=== PATIENT | male | born 1945 | race Caucasian/White ===

== ENCOUNTER 2023-09-09 23:53 | Observation (INO) | payer MEDICARE, OTHER, SELFPAY ==
[2023-09-09 19:26] VITALS: BP 130/80
[2023-09-09 19:55] LABS: % Basophils 0.8 % (0-2); % Eosinophils 0.3 % (0-6); % Immature Granulocytes 0.3 % (0-0.5); % Lymphocytes 19.8 % (20.5-51.1); % Monocytes 4.4 % (1.7-9.3); % Neutrophils 74.4 % (42.2-75.2); Absolute Basophils 0.1 10^3/uL (0-0.2); Absolute Lymphocytes 1.2 10^3/uL (1.2-3.4); Absolute Monocytes 0.3 10^3/uL (0.1-0.6); Absolute Neutrophils 4.4 10^3/uL (1.4-6.5); Hematocrit 43.6 % (39.0-52.0); Hemoglobin 14.8 g/dL (13.0-18.0); Mean Corp Hgb Conc. 33.9 g/dL (33.0-37.0); Mean Corpuscular Hgb 32.5 pg (27.0-31.0); Mean Corpuscular Volume 95.6 fL (80.0-94.0); Mean Platelet Volume 10.4 fL (7.4-10.4); Nucleated Red Blood Cells % 0 % (-); Platelet Count 178 10^3/uL (130-400); Red Blood Cell Count 4.56 10^6/uL (4.70-6.10); Red Cell Dist. Width 13.2 % (11.5-14.5)
[2023-09-09 20:20] LABS: ALT (SGPT) 18 U/L (0-50); AST (SGOT) 21 U/L (17-59); Albumin 4.1 g/dl (3.5-5.0); Alkaline Phosphatase 90 U/L (38-126); Blood Urea Nitrogen 28 mg/dl (9-20); Calcium 9.7 mg/dl (8.4-10.2); Carbon Dioxide 27 mmol/L (22-30); Chloride 103 mmol/L (98-107); Glucose 134 mg/dl (70-99); Potassium 5.3 mmol/L (3.5-5.1); Sodium 137 mmol/L (135-145); Total Bilirubin 0.7 mg/dl (0.2-1.3); Total Protein 6.6 g/dl (6.3-8.2); eGFR > 60.00
--- NOTE | 2023-09-09 20:22 | ED.GENMED ---
History of Present Illness
General
Chief Complaint: Abdominal Pain
Source: patient, records and family
Exam Limitations: none
Time Seen by Provider: 09/09/23 20:12
Nursing documentation reviewed up to this point in time: agreed with
Travel History
Have you had any contact with someone who has COVID-19?: No
Do you have any symptoms of coronavirus? Fever > 100 degrees, chills, cough, shortness of breath, sore throat, loss of taste or smell, muscle aches, or headache?: No
History of Present Illness
History of Present Illness:
78-year-old male presents with right groin pain onset today around 11 AM with some swelling no history of hernia does have a history of AAA being followed by vascular patient tells me was not big enough for surgery on the most recent CAT scan, has
had no vomiting, no trouble urinating, he has had bladder surgery for cancer, he had inguinal hernia repair he is getting known AAA sees Dr. Mccord has had peripheral vascular surgery for he takes Plavix but he has not had it for about 3 days
due to an upcoming spinal injection
Past History
Past History
ED Past Medical History: Cancer, Hypercholesterolemia and Other (Bladder cancer, perforated bladder, peripheral vascular disease, BPH,)
ED Past Surgical History: Orthopedic and Other (Leg stents, bladder surgery with perforation May 2022)
Patient has exhibited threatening behavior?: No
PSI?: No
Social History
Tobacco: Former smoker
Alcohol: None
Drug: None
Personal:
Living: with family
Employment: Employed
Review of Systems
Review of Systems
All Other Systems: Not applicable
Constitutional: Denies fever or fatigue
EENT: Reports no symptoms
Respiratory: Reports no symptoms
Cardiac: Reports no symptoms
ABD/GI: Reports abdominal pain (In his right groin)
Phy Exam
Physical Exam
Physical Exam:
Physical Exam
General: no apparent distress, not acutely ill
Neck: No jaundice
Heart: s1/s2 regular rate and rhythm, no murmur. equal radial pulses.
Lungs: no acute respiratory distress. clear bilaterally
Abdomen: 3 cm tender bulge in the right inguinal region
Neuro: alert and oriented. no focal neurological deficits
Skin: no rash
Psychiatric: well kept. interactive and cooperative
Extremities: no edema.
Course
Orders/Labs/Results
Orders:
Orders
09/09/23 19:41
CMP [Comprehensive Metabolic Panel] Urgent
Complete Blood Count/With Diff Urgent
09/09/23 20:16
CT Abd/pelvis Angio W/wo Iv Stat
Comment:
Reason For Exam: AAA rigth groint pain
0.9% Sodium Chloride 1000 ml [Nss] 1,000 ml IV BOLUS
09/09/23 20:17
Morphine Sulfate 4 mg IV NOW STA
09/09/23 20:18
Ondansetron Injectable [Zofran] 4 mg IV NOW STA
09/09/23 20:51
Prothrombin Time Urgent
Urinalysis Urgent
Date Specimen was Collected: 09/09/23
Time Specimen was Collected: 19:30
Urine Microscopic Urgent
Date Specimen was Collected: 09/09/23
Time Specimen was Collected: 19:30
09/09/23 22:21
HYDROmorphone [Dilaudid] 1 mg IV NOW STA
Abnormal Lab Results
09/09/23 09/09/23
19:41 20:51
RBC 4.56 L 10^6/uL
(4.70-6.10)
MCV 95.6 H fL
(80.0-94.0)
MCH 32.5 H pg
(27.0-31.0)
Lymphocytes % 19.8 L %
(20.5-51.1)
Potassium 5.3 H mmol/L
(3.5-5.1)
BUN 28 H mg/dl
(9-20)
Glucose 134 H mg/dl
(70-99)
Urine Occult Blood 1+ A
(Negative)
Ur Leukocyte Esterase Trace A
(Negative)
Urine RBC 7-10 A /HPF
(0-2)
Urine Bacteria Few A
(Negative)
09/09/23 19:41
09/09/23 19:41
Vital Signs
Initial and Last Documented VS:
Initial Vital Signs
Temp Pulse Resp BP Pulse Ox
97.8 F 62 24 130/80 96
09/09/23 19:26 09/09/23 19:26 09/09/23 19:26 09/09/23 19:26 09/09/23 19:26
Last Documented Vital Signs
Temp Pulse Resp BP Pulse Ox
97.8 F 62 24 130/80 96
09/09/23 19:26 09/09/23 19:26 09/09/23 19:26 09/09/23 19:26 09/09/23 21:06
Procedures
Other
Indication for procedure:: Symptomatic hernia
Procedure completed by: aston
Consent form signed: No
Additional Procedure:
Verbal consent timeout, reverse Trendelenburg, IV analgesia
attempt x2 unsuccessful
MDM/Problems Addressed
Differential Diagnosis Includes:
Hernia incarcerated hernia AAA rupture
MDM/Problems Addressed:
Groin pain
Chronic conditions affecting care:
AAA
Chronic conditions affecting care: DM
Acute Exacerbation and/or Progression of Chronic Illness:
AAA
*Radiology
Radiology exam reviewed: other (Prior CTs noted repeat pending)
*Pulse Oximetry
Patient hypoxic: no
*Security Systems Engineer Interpretation
Rate: Security Systems Engineer- N/A
*Critical Care Note
Total Time (30-74mins, 75-104mins- exclusive of procedures): Not Applicable
Update Note
Update Note:
10:[address] noted, as suspected looks like inguinal hernia moderately tender will try to reduce place in the progression down
Ice analgesia
Second attempted reduction unsuccessful, no skin changes, patient appears fairly comfortable, after analgesia, reviewed with general surgery, will be admitted, will hold his Plavix
ED Attending Note
-
Portions of this chart may have been created with voice recognition software.� Occasional wrong word or��sound alike� substitutions may have occurred due to the inherent limitations of voice recognition software.
Discharge Plan
Departure
Patient Disposition: Admit
Date of Disposition: 09/09/23
Time of Disposition: 23:22
Admit to: Med/Surg
Admit to doctor: Juan
Presentation/result/management discussed w/ accepting MD/DO: ALANA
Covid-19: Not Applicable
Discharge Problem:
Inguinal hernia
Prescriptions:
No Action
atorvastatin 40 mg Tablet
40 mg PO DAILY
clopidogrel 75 MG tablet
75 mg PO QPM
tamsulosin 0.4 mg Capsule
0.4 mg PO DAILY Qty: 30 0RF
acetaminophen [Tylenol] 325 mg Tablet
650 mg PO BID
nitrofurantoin macrocrystal 100 mg Capsule
100 mg PO QPM
famotidine 20 mg tablet
20 mg PO BID Qty: 14 0RF
Referrals:
Catracho Rausch MD [Family Provider] -
Interventions
Interventions:
*Risk Screen - Suicide Last Done: 09/09/23 19:26
*General Assessment Last Done: 09/09/23 21:08
*Neglect/Abuse Screening Last Done: 09/09/23 19:26
ED- Fall Risk Assessment Last Done: 09/09/23 21:09
*ED COVID-19 Vaccine History Last Done: 09/09/23 21:08
KF-Ujvmhg-Kucnflqicx Assessment Last Done: 09/09/23 21:10
ED-Male Genitourinary Assessment Last Done: 09/09/23 21:10
[2023-09-09] MEDS: MORPHINE SULFATE 4 MG IV (21:01)
[2023-09-09] MEDS: NSS 1000 IV (21:01)
[2023-09-09] MEDS: ZOFRAN 4 MG IV (21:02)
[2023-09-09 21:07] VITALS: BMI 20.7
[2023-09-09 21:11] LABS: Urine Albumin Negative (Neg - Trace); Urine Bilirubin Negative (Negative); Urine Character Clear (Clear); Urine Color Yellow; Urine Glucose Negative (Negative); Urine Ketone Negative (Negative); Urine Leukocyte Trace (Negative); Urine Nitrite Negative (Negative); Urine Occult Blood 1+ (Negative); Urine Urobilinogen Negative (Neg - 1+)
[2023-09-09 21:20] LABS: Urine Squamous Cell 0-2 /LPF (Few)
[2023-09-09 21:21] LABS: INR 1.08; PT 14.2 Sec (11.4-14.6); Urine Bacteria Few (Negative); Urine White Cell 0-2 /HPF (0-5)
[2023-09-09] MEDS: DILAUDID 1 MG IV (22:37)
--- NOTE | 2023-09-09 23:59 | HPS.HSE ---
Addendum entered and electronically signed by Bora Martinez MD 09/10/23 08:03:
I saw and examined the patient.
The Thin Film Technician's note was reviewed and I agree with the note.
Comment: Seen and evaluated at bedside. Reports improved pain and swelling in the right groin though not completely resolved. He denies any heavy lifting or straining for BMs. He was driving when the pain started. He is a smoker and does have a
chronic cough but is unsure if he was coughing in any significant way prior to onset. He has had an open RIHR in the past but does not recall the date or details but reports it was many years ago. He denies n/v. Last BM yesterday was normal. On
plavix for PAD, last dose 3 days ago (preparation for epidural injections scheduled in near future). There is a tender bulge palpable on exam in the right groin, no skin changes, not reducible. Otherwise abd exam is benign. AFVSS, labs unremarkable.
CT from yesterday reviewed as well as prior scans going back about 18 months. In March there is no fluid in the groin, in Apr there is a fluid collection there, on the scan from this admission the fluid collection appears larger. There is bowel
adjacent to the fluid but it is unclear on my interpretation if there is actually bowel in the hernia. He has no obstructive symptoms. He is still requiring pain medicine to manage the groin pain. We briefly discussed elevated risks of emergency
surgery due to recent plavix use. His labs and vitals are stable and his exam is improved. Plan: Rpt CT A/P with PO contrast only - to help determine if there is true bowel involvement here
Original Note:
Family Physician
-
Family Physician: Catracho Rausch
Chief Complaint
-
right inguinal hernia
History of Present Illness
78-year-old male with extensive vascular surgery hx presents with right groin pain onset today around 11 AM with some swelling. He did attempt to reduce hernia himself with no luck. ER doc Attmepted twice and also had no success. Has a history of
AAA being followed by vascular (Dr Fischer) patient tells me was not big enough for surgery on the most recent CAT scan. He has had no vomiting, no trouble urinating, he has had bladder surgery for cancer, he thinks he has had inguinal hernia repair
with mesh and has has many peripheral vascular surgery for -->he takes Plavix but he has not had it for about 3 days due to an upcoming spinal injection.
CT scan: IMPRESSION:
1. Increased size of a small to moderate inguinal hernia containing a loop of small bowel with mild wall edema or adjacent small fluid.
2. Stable abdominal aortic aneurysm measuring 5.2 cm in diameter.
3. Stable chronic findings, as above.
Medical History
Past Medical History
Past Medical History: Reports COPD (emphysema), CVA (TIA's), Valvular Disease ( peripheral vascular disease, BPH, AAA) and Other ( Hypercholesterolemia and Bladder cancer, perforated bladder, t12 comp fx, right scapular fx, )
Past Surgical History: Reports Orthopedic (back surgery, left ankle surgery, knee surgery, ), Urological (transurethral resection of bladder tumor for this high-grade tumor and during the procedure there was a perforation of the bladder 2021, turp
february 2023,) and Other (LLE arteriogram 2016, 2018, right inguinal hernia repair ? date unknown)
Social History
Tobacco: Former Smoker
Alcohol: None
Drug: None
Personal:
Living: With Family
Employment: Employed
Family History
Family History: Not pertinent
Allergies / Home Medications
Allergies reflects when Allergies were last updated in [employer].
Home Medications with original date entered in [employer]
Allergy/Medication List:
Allergies
Allergy/AdvReac Type Severity Reaction Status Date / Time
No Known Allergies Allergy Verified 07/31/22 15:04
Home Medications
atorvastatin 40 mg tablet 40 mg PO DAILY High cholesterol
clopidogrel 75 mg tablet 75 mg PO HS Blood clot prevention/tx ---None x 3 days for upcoming spinal epidural
tamsulosin 0.4 mg capsule 0.4 mg PO DAILY
Review of Systems
-
History Source: Patient
A 12 point ROS was completed and negative except as noted: Yes
Constitutional: Reports No Symptoms
EENT: Reports No Symptoms
Respiratory: Reports No Symptoms
Cardiac: Reports No Symptoms
Abdomen/GI: Reports Other (right inguinal hernia)
: Reports No Symptoms
Musculoskeletal: Reports No Symptoms
Skin: Reports No Symptoms
Neurological: Reports No Symptoms
Endocrine: Reports No Symptoms
Hematologic/Lymphatic: Reports No Symptoms
Physical Exam
Vital Signs
Vital Signs
Temp Pulse Resp BP Pulse Ox
97.8 F 62 24 130/80 96
09/09/23 19:26 09/09/23 19:26 09/09/23 19:26 09/09/23 19:26 09/09/23 21:06
Physical Exam
General: Well Developed, Well Nourished, No Apparent Distress and Comfortable
HEENT: NormoCephalic, Anicteric, Moist mucous membranes and Hearing Impaired (hearing aid right ear noted)
Respiratory: Clear and Non Labored Respirations
Cardiac: S1/S2 and Regular Rhythm
Breast: Deferred by me
GI: Soft and Tender (RLQ. Hernia noted)
Rectal: Deferred by Provider
Genito-urinary: Deferred by me
Musculoskeletal: No Clubbing
Skin: Warm and Dry
Neuro: Awake, Alert, Oriented, AO x 3 and No Motor Deficits
Hematologic/Lymphatic: Lymphadenopathy
Psych: Calm
Laboratory Results
-
09/09/23 19:41
09/09/23 19:41
Laboratory Results
PT 14.2 Sec (11.4-14.6) 09/09/23 20:51
INR 1.08 09/09/23 20:51
Total Bilirubin 0.7 mg/dl (0.2-1.3) 09/09/23 19:41
AST 21 U/L (17-59) 09/09/23 19:41
ALT 18 U/L (0-50) 09/09/23 19:41
Alkaline Phosphatase 90 U/L (38-126) 09/09/23 19:41
Data Reviewed
-
CT Scan: Discussed with Physician
Impression/Plan
-
IMPRESSION:
incarcerated right inguinal hernia
PLAN:
Admit to service of DR Martinez
Med surg obs
#incarcerated right inguinal hernia
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
-NPO for OR 09/10/23
-IVF: nss @75
-ICE PRN
-pain control: dilaudid iv, norco prn
-Zofran prn
#PAD
- continue to hold plavix. Pt has not had for 3 days for upcoming epidural injection
#AAA
- Stable large fusiform aneurysm of the infrarenal abdominal aorta measuring up to 5.2 cm in diameter
-follows closely with Dr fischer
#BPH
-cont flomax
#HLD
-cont liptior
K 5.3 and BUN 28--> should improve with ivf, pt dehydrated stating he hasn't had po intake much today
repeat labs in am
UA
-showed trace leukocytes, few bacteria
-denies urinary complaints
- no abx needed for now
DVT proh: scd since pt going to OR in am
Full code
[2023-09-10 00:10] VITALS: BP 128/76
[2023-09-10] MEDS: NSS 1000 IV (01:43)
[2023-09-10 04:14] VITALS: BP 126/84
[2023-09-10 04:15] VITALS: BP 126/84
[2023-09-10] MEDS: DILAUDID 1 MG IV (06:31)
[2023-09-10 06:56] LABS: % Basophils 0.4 % (0-2); % Eosinophils 0.7 % (0-6); % Immature Granulocytes 0.7 % (0-0.5); % Lymphocytes 17.6 % (20.5-51.1); % Monocytes 6.8 % (1.7-9.3); % Neutrophils 73.8 % (42.2-75.2); Absolute Eosinophils 0.1 10^3/uL (0-0.7); Absolute Immature Granulocytes 0.1 10^3/uL (0-0.05); Absolute Lymphocytes 1.3 10^3/uL (1.2-3.4); Absolute Monocytes 0.5 10^3/uL (0.1-0.6); Absolute Neutrophils 5.3 10^3/uL (1.4-6.5); Hematocrit 40.8 % (39.0-52.0); Hemoglobin 13.9 g/dL (13.0-18.0); Mean Corp Hgb Conc. 34.1 g/dL (33.0-37.0); Mean Corpuscular Hgb 32.3 pg (27.0-31.0); Mean Corpuscular Volume 94.7 fL (80.0-94.0); Nucleated Red Blood Cells % 0 % (-); Platelet Count 182 10^3/uL (130-400); Red Blood Cell Count 4.31 10^6/uL (4.70-6.10); Red Cell Dist. Width 13.2 % (11.5-14.5); White Blood Cell Count 7.2 10^3/uL (4.8-10.8)
[2023-09-10 07:20] LABS: ALT (SGPT) 14 U/L (0-50); AST (SGOT) 19 U/L (17-59); Albumin 3.4 g/dl (3.5-5.0); Alkaline Phosphatase 74 U/L (38-126); Blood Urea Nitrogen 24 mg/dl (9-20); Calcium 8.7 mg/dl (8.4-10.2); Carbon Dioxide 23 mmol/L (22-30); Chloride 107 mmol/L (98-107); Estimated Creatinine Clearance 57 ml/min; Glucose 98 mg/dl (70-99); Potassium 4.4 mmol/L (3.5-5.1); Sodium 138 mmol/L (135-145); Total Bilirubin 0.8 mg/dl (0.2-1.3); Total Protein 5.7 g/dl (6.3-8.2); eGFR > 60.00
[2023-09-10] MEDS: OMNIPAQUE 50 ML PO (08:45)
[2023-09-10] MEDS: FLOMAX 0.400000000000000022 MG PO (08:48)
[2023-09-10] MEDS: LIPITOR 40 MG PO (08:53)
--- NOTE | 2023-09-10 09:22 | W.PN.UPDATE ---
Update Note
Progress Note Update
Imaging reviewed together with Rads. I am more convinced of bowel involvement after this discussion. Returned to see patient and was able to successfully manually reduce the hernia with a bit of trendelenburg positioning. Will defer rpt CT scan at
this time, in favor of starting CLD. Will observe for today and ADAT. Plan now for interval elective MIS recurrent RIHR. Salty have my office set this up upon DC later today pending continued improvement.
--- NOTE | 2023-09-10 12:17 | CM ---
CM reviewed medical records. CM gave patient MISTRY letter. CM confirmed demographics. Patient lives independently with. Patient has a remote history of VN. NO history of SNF or DME in the home. patient is active with his PCP and uses [facility] for
medication services.
PLAN: Home no needs.
[2023-09-10 14:07] VITALS: BP 106/59
[2023-09-10] MEDS: NSS IV (15:05)
--- NOTE | 2023-09-10 16:15 | W.PN.UPDATE ---
Update Note
Progress Note Update
Pt seen and evaluated at bedside, Pain totally resolved. Denies n/v. Nanci fulls for lunch and currently eating regular dinner without any issue. Plan for DC home, with f/u in my office tomorrow to set up elective outpt hernia repair.
== END 2023-09-10 17:24 | disposition home or self-care (01) ==
LOC: ED 23:53
PROVIDERS: Nurse Practitioner Family; ADMITTING PHYSICIAN Surgery; EMERGENCY PHYSICIAN Emergency Medicine; FAMILY PHYSICIAN Family Medicine
DX: K40.90 Unilateral inguinal hernia, without obstruction or gangrene, not specified as recurrent (principal); R10.31 Right lower quadrant pain; I71.30 Abdominal aortic aneurysm, ruptured, unspecified; I73.9 Peripheral vascular disease, unspecified; N40.0 Benign prostatic hyperplasia without lower urinary tract symptoms; E78.00 Pure hypercholesterolemia, unspecified; F17.200 Nicotine dependence, unspecified, uncomplicated; R05.3 Chronic cough; Z79.02 Long term (current) use of antithrombotics/antiplatelets; Z85.51 Personal history of malignant neoplasm of bladder; Z87.891 Personal history of nicotine dependence
CPT/HCPCS: 74174; 80053; 81003; 81015; 85025; 85610; 96361; 96374; 96375; 99285; G0378; Q9967

== ENCOUNTER 2023-09-19 06:22 | Day surgery (SDC) | payer MEDICARE, OTHER, SELFPAY ==
[2023-09-19] VITALS (8 sets, daily range): BP systolic 108–131; BP diastolic 68–80; BMI 21.5
[2023-09-19] MEDS: TYLENOL 1000 MG PO (07:53)
[2023-09-19] MEDS: NORMOSOL-R 1000 IV (08:05)
--- NOTE | 2023-09-19 10:16 | W.IMMPOSTOP ---
Surgical Immed Post Op Note
-
Primary Surgeon: Juan
Assisting: Aron
Pre-op Diagnosis: Recurrent incarcerated right inguinal hernia
Post-op Diagnosis: Same
Procedure Performed: Robot assisted laparoscopic repair of recurrent incarcerated right inguinal hernia
Anesthesia Type: GETA
Specimen / Cultures: None
Estimated Blood Loss: 10cc
Complications: None immediate
Operative Findings: Prior plug repair, plug was scarred in at the tubercle and was carefully taken down uneventfully; recurrence into the femoral space; XL MID 3D Max
--- NOTE | 2023-09-19 10:21 | OR.RPT ---
Operative Report
Operative Report
Primary Surgeon:� Juan
Assisting: Aron�
Pre-op Diagnosis:� Recurrent incarcerated right inguinal hernia
Post-op Diagnosis: � Same
Procedure Performed:� Robot assisted laparoscopic repair of recurrent incarcerated right inguinal hernia
Anesthesia Type:� GETA
Specimen / Cultures:� None
Estimated Blood Loss:� 10cc
Complications:� None immediate
Operative Findings:� Prior plug repair, plug was scarred in at the tubercle and was carefully taken down uneventfully; recurrence into the femoral space; XL MID 3D Max
Date of surgery: 09/19/23
Indications:� This 78M developed�a recurrent right inguinal hernia.� He was seen in the the ED last week for the incarceration and robot assisted laparoscopic repair was planned. His plavix was held as per standard guidelines.
Description of procedure:� The patient was taken to the operating room and positioned into supine position. The patient�s abdomen was prepped and draped in standard sterile fashion. A time-out was completed verifying correct patient, procedure,
site, positioning, and implants and special equipment prior to beginning this procedure.� A stab incision was made in the left upper quadrant, a Veress needle was inserted and proper position was confirmed by aspiration and saline drop test.
Following this, pneumoperitoneum was created with insufflation of carbon dioxide to 12 mmHg. Then a 8mm robotic trocar was inserted above and to the left of the umbilicus. A laparoscope was inserted and the area of initial trocar entry and Veress
needle placement were both inspected and no injuries were found. Two 8mm trocars were then placed lateral to the rectus sheath under direct visualization.
Both inguinal regions were inspected and the median umbilical ligament, medial umbilical ligament, and lateral umbilical fold were identified. Attention was turned to the right groin. The peritoneum was incised transversely above the defect and a
flap was developed in the caudad direction. Santos�s ligament was identified ultimately dissected to its junction with the iliac vein and the space of Retzius was developed bluntly. At the tubercle the previous plug was encountered. It was carefully
dissected away from the pelvic brin and dropped away from the abdominal wall together with the peritoneal flap. The dissection was continued inferiorly to the iliopubic tract, with care taken to avoid injury to the femoral branch of the
genitofemoral nerve and the lateral femoral cutaneous nerve. The cord structures were parietalized.
The direct space was inspected and a hernia was not identified. The femoral space was inspected and a hernia was identified and fatty contents were reduced by gentle traction.� The indirect space was inspected and no hernia was identified. The canal
was inspected and no cord lipoma was identified.
Extra large right MID 3D max mesh was passed through a trocar. The mesh was placed into the preperitoneal space and moved into position to lay flat and completely cover the direct, indirect, and femoral spaces with overlap at the midline. The mesh
was secured into place using 2-0 vicryl suture to Santos�s ligament medially and laterally. Care was taken to avoid the inferolateral triangles containing the iliac vessels and genital nerves.
The peritoneal flap was closed over the mesh and secured with 2-0 monocryl stratafix suture in similar positions of safety.� A large inferior flap rent was closed with 2-0 onocryl stratafix suture. A 14g angiocath was used to decompress the
preperitoneal space revealing good seal and all mesh in good position without folding or curling. After ensuring adequate hemostasis, the trocars were removed and the pneumoperitoneum allowed to escape. The trocar incisions were closed at the skin
level using 4-0 monocryl and topical skin adhesive. The patient tolerated the procedure well and was taken to the postanesthesia care unit in stable condition.
I was present for and performed all vasquez portions of the procedure. The resident assisted with access, exposure and skin closure.�
[2023-09-19] MEDS: SUBLIMAZE 50 MCG IV (10:57)
== END 2023-09-19 12:20 | disposition home or self-care (01) ==
LOC: SDS 06:22
PROVIDERS: ATTENDING PHYSICIAN Surgery
DX: K40.31 Unilateral inguinal hernia, with obstruction, without gangrene, recurrent (principal)
CPT/HCPCS: 49651; 93005; C1781

== ENCOUNTER → 2023-11-17 09:44 | Outpatient (REF) | payer MEDICARE, OTHER, SELFPAY | LOC: RAD 09:44 | PROVIDERS: ATTENDING PHYSICIAN Surgery Vascular Surgery; FAMILY PHYSICIAN Family Medicine | DX: I73.9 Peripheral vascular disease, unspecified (principal) | CPT/HCPCS: 93922; 93925 ==

== ENCOUNTER → 2023-12-19 15:39 | Outpatient (REF) | payer MEDICARE, OTHER, SELFPAY | LOC: RCS 15:39 | PROVIDERS: ATTENDING PHYSICIAN Internal Medicine Interventional Cardiology; FAMILY PHYSICIAN Family Medicine | DX: I73.9 Peripheral vascular disease, unspecified (principal); R94.31 Abnormal electrocardiogram [ECG] [EKG]; E78.2 Mixed hyperlipidemia | CPT/HCPCS: 93306 ==

== ENCOUNTER 2023-12-30 06:19 | Inpatient (IN) | payer MEDICARE, OTHER, SELFPAY ==
[2023-12-25 09:19] VITALS: BMI 22.5
[2023-12-25 10:03] LABS: INR 1.03; PT 13.5 Sec (11.4-14.6)
[2023-12-25 10:04] LABS: APTT 28.5 Sec (23.4-35.0)
[2023-12-25 10:05] LABS: Blood Urea Nitrogen 26 mg/dl (9-20); Calcium 9.3 mg/dl (8.4-10.2); Carbon Dioxide 27 mmol/L (22-30); Chloride 105 mmol/L (98-107); Estimated Creatinine Clearance 48 ml/min; Glucose 106 mg/dl (70-99); Sodium 139 mmol/L (135-145); eGFR > 60.00
[2023-12-25 10:20] LABS: % Eosinophils 1.5 % (0-6); % Immature Granulocytes 0.2 % (0-0.5); % Lymphocytes 32.8 % (20.5-51.1); % Monocytes 8.7 % (1.7-9.3); % Neutrophils 55.8 % (42.2-75.2); Absolute Basophils 0.1 10^3/uL (0-0.2); Absolute Eosinophils 0.1 10^3/uL (0-0.7); Absolute Lymphocytes 1.6 10^3/uL (1.2-3.4); Absolute Monocytes 0.4 10^3/uL (0.1-0.6); Absolute Neutrophils 2.7 10^3/uL (1.4-6.5); Hematocrit 44.7 % (39.0-52.0); Hemoglobin 14.4 g/dL (13.0-18.0); Mean Corp Hgb Conc. 32.2 g/dL (33.0-37.0); Mean Corpuscular Hgb 31.7 pg (27.0-31.0); Mean Corpuscular Volume 98.5 fL (80.0-94.0); Mean Platelet Volume 10.8 fL (7.4-10.4); Nucleated Red Blood Cells % 0 % (-); Platelet Count 171 10^3/uL (130-400); Red Blood Cell Count 4.54 10^6/uL (4.70-6.10); Red Cell Dist. Width 13.4 % (11.5-14.5); White Blood Cell Count 4.8 10^3/uL (4.8-10.8)
[2023-12-30] VITALS (15 sets, daily range): BP systolic 97–146; BP diastolic 63–92; BMI 21.6
--- NOTE | 2023-12-30 06:55 | W.SUR.PREOP ---
Pre-Operative Surgical Note
-
I have examined this patient prior to the performance of the scheduled procedure.
The patient's condition is unchanged from the time of the current History and
Physical and the patient is able to undergo the scheduled procedure.
[2023-12-30] MEDS: BACTROBAN NASAL 1 GRAM NASAL (07:03)
[2023-12-30] MEDS: PERIDEX 0.12% ORAL RINSE 15 ML PO (07:03)
[2023-12-30 08:39] LABS: ACT-LR - POC 282 Seconds (116-155)
[2023-12-30 09:36] LABS: ACT-LR - POC 300 Seconds (116-155)
--- NOTE | 2023-12-30 10:46 | OR.RPT ---
Operative Report
Operative Report
Date of Operation: 12/30/2023
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
Post Op Diagnosis: Juxtarenal abdominal aortic aneurysm
Procedure:
1.) Percutaneous fenestrated aortic stent graft repair of juxtarenal abdominal aortic aneurysm;
Homero P-30-94, large fenestration for SMA, bilateral renal fenestrations
Homero D- -28-76 distal main body
ZSLE 16-90 RIGHT iliac extension
ZSLE 13-74 LEFT iliac extension
2.) Bilateral renal artery stenting for fenestrated stent graft repair (7 x 22 iCasts bilaterally, post-dilated proximal to 10 mm)
3.) Ultrasound-guided percutaneous femoral access, bilateral
4.) Proglide closure of the bilateral femoral artery access
Surgeon: Miguel Dougherty III, MD
[employer] Tank Operator: Juan Greenwood MD PhD, PGY1
Fluoroscopy:
55 minutes
1513 mGy
253.62 DAP
Anesthesia: General
Complications: None
History and Indications for Procedure: Large juxtarenal abdominal aortic aneurysm.
Procedure in Detail: Osmar Harrington was correctly identified and placed supine on the operating table. After adequate induction of anesthesia the abdomen, pelvis and bilateral groins were positioned, prepped and draped in the usual sterile fashion.
Preoperative antibiotics were administered. A timeout procedure was performed with the nursing and anesthesia staff confirming the patients identity as well as the nature and laterality of the procedure.
Under ultrasound guidance, bilateral femoral artery 5Fr sheath access was obtained using a micropuncture technique. The arteries were patent on ultrasound. Ultrasound images of the femoral arteries were saved to the medical record. A pre-close
technique was performed bilaterally with 2 offset Proglide closure devices. The sutures were secured and tucked under surgical towels for use at the end of the case. Bilateral 8 Fr sheaths were replaced over Bentson wires. The patient was
systemically heparinized.
From the right femoral access a KMP catheter and Bentson wire were advanced to the proximal descending thoracic aorta. The wire was exchanged out through the catheter for a Lunderquist wire. Under direct radiographic guidance from the right femoral
access a 18 Fr dry seal sheath was advanced over the Lunderquist wire into the distal abdominal aorta. From the left femoral access a Bentson wire was advanced into the abdominal aorta. The wire was exchanged out for a Lunderquist wire.
The fenestrated stent graft (Zfen-P-2 -30-94) was opened and prepped on the back table. The stent was oriented in the proper position under radiographic guidance outside of the body. While maintaining the proper orientation, the fenestrated main
body was advanced over the Lunderquist wire on the left under radiographic guidance and placed in the approximate position. A pigtail catheter was placed through the sheath on the right. An aortogram was performed which clearly demonstrated the
origin of the SMA, bilateral renals and visualized to the aneurysm and aortic bifurcation. Under roadmap guidance the Zfen main body was carefully unsheathed in the desired location to the distal end of the stent.
Through the 18 Fr sheath the fenestrated main body was accessed with a Glidewire and partially formed pigtail catheter. The wire was exchanged out for a Lunderquist wire. The 18 [place] sheath with its dilator in place were advanced into the
fenestrated main body. Then, over the Lunderquist wire, a 7 Fr Alfred sheath was advanced over the wire into the fenestrated main body. Using a Van Schie 4 catheter and a glidewire the right renal artery was accessed. The Glidewire was exchanged out
for a Freire wire. We performed an arteriogram to confirm proper positioning in the renal artery. The 7 Fr Alfred sheath was advanced through the right renal fenestration and into the [place] renal artery. A 7 x 22 iCast was then advanced over the wire
and placed across the fenestration still inside the sheath.
Through another access in the 18 Fr sheath a 7 Fr Alfred sheath was then advanced over a wire into the fenestrated main body. Using a Van Schie 4 catheter and a glidewire the left renal artery was accessed. The Glidewire was exchanged out for a Freire
wire. We performed an arteriogram to confirm proper positioning in the renal artery. The 7 Fr Alfred sheath was advanced through the left renal fenestration and into the [place] renal artery. A 7 x 22 iCast was then advanced over the wire and placed
across the fenestration still inside the sheath.
Following successful cannulation of the renal artery fenestrations I then completed the deployment of the fenestrated main body with release of the diameter reducing wires and release of the top cap. The top cap was then carefully recaptured under
radiographic guidance and the delivery system carefully removed over the Lunderquist wire.
A Coda balloon was then inserted on the left and the proximal seal zones of the Zfen main body were profiled with the Alfred sheaths in position. The Coda was then removed over the wire.
Deployment of the iCast stents across the renal fenestrations were completed one at a time as follows: The renal fenestration markers on each side were 'closed' by adjusting the C-arm obliquity. One at a time the Alfred sheaths were then retracted to
fully expose the iCast stent. The stent was properly positioned across the fenestration under magnification views and deployed by inflating the balloon to nominal pressure. The Alfred sheath was re-advanced into the iCast to 'swallow' the balloon as
it was deflated. A 10 x 2 angioplasty balloon was then positioned in the proximal portion of the iCast. The sheath was retracted and the balloon inflated while maintaining gentle forward pressure to post-dilate the proximal end of the iCast. The
sheath was once again re-advanced into the stent by swallowing the balloon as it deflated. The Alfred sheaths were each left in place inside the iCasts while the distal main body was introduced.
The distal main body (Zfen-D-12 -28-76) was prepped on the back table and brought to the field. The device was oriented outside the body under radiographic guidance. Over the Lunderquist wire on the left the distal main body was introduced carefully
under radiographic guidance and positioned properly. The Alfred sheaths and wires bilaterally were then removed one at a time. The distal main body was then deployed down to the contralateral gate.
From the right femoral sheath the contralateral gate was successfully cannulated using a KMP catheter and a Glidewire. I confirmed proper position within the gate and main body by pushing up on a pigtail catheter while the top portion of the distal
main body was released and visualizing the catheter move forward. After confirming the gate cannulation I advanced the catheter and wire into the proximal descending thoracic aorta and then exchanged out for a Lunderquist. The marker pigtail
catheter was positioned in over the Lunderquist and a retrograde sheath arteriogram was performed. I measured the length for the iliac extension and the iliac bifurcation was clearly marked. The pigtail was removed and over the Lunderquist wire the
contralateral limb extension (ZSLE 16-90) was advanced into the proper position with adequate overlap and preservation of the iliac bifurcation. The stent was deployed without difficulty.
I then completed the deployment of the distal main body. The delivery system was carefully removed over the wire under radiographic guidance. A retrograde sheath arteriogram was performed on the ipsilateral side. Over the Lunderquist wire the
ipsilateral limb extension was placed (ZSLE 13-74). Proper overlap was obtained and the stent was deployed without difficulty. The delivery system was then removed over the wire.
A Coda balloon was then advanced one side at a time. The overlap between the fenestrated main body and the distal main body was profiled with the Coda. Both iliac limbs were also profiled including the overlap and the distal seal zones bilaterally.
A pigtail catheter was placed once again. Stiff wires were removed. A completion aortogram demonstrated a good technical result. There was brisk flow through the aortic stent and iliac limbs. The renal arteries/stents were widely patent bilaterally.
The superior mesenteric artery filled briskly and was widely patent. There appeared to be a late type II endoleak visualized around the right lateral surface of the stent graft. Additional imaging under magnification view did not appear to show a
type I or type III endoleak. Satisfied with this result we then concluded the procedure.
The Proglide sutures were secured bilaterally after removing the sheaths and wires. Protamine was administered. Additional pressure was applied to the puncture sites bilaterally for 10 minutes. Hemostasis was achieved bilaterally.
Sterile skin glue was applied.
The patient tolerated the procedure well and was taken to the PACU in stable condition.
Attestation: I was present and responsible for all documented portions of the above procedure.
Miguel Dougherty III, MD
[facility] Surgery
[phone] (cell)
[2023-12-30] MEDS: SUBLIMAZE 25 MCG IV (11:02)
[2023-12-30 11:05] LABS: Hematocrit 36.8 % (39.0-52.0); Hemoglobin 12.4 g/dL (13.0-18.0); Mean Corp Hgb Conc. 33.7 g/dL (33.0-37.0); Mean Corpuscular Volume 95.1 fL (80.0-94.0); Mean Platelet Volume 10.3 fL (7.4-10.4); Platelet Count 146 10^3/uL (130-400); Red Blood Cell Count 3.87 10^6/uL (4.70-6.10); Red Cell Dist. Width 13.5 % (11.5-14.5); White Blood Cell Count 8.4 10^3/uL (4.8-10.8)
--- NOTE | 2023-12-30 11:11 | W.IMMPOSTOP ---
Surgical Immed Post Op Note
-
Primary Surgeon: Dr. Miguel Dougherty III, MD
Assisting Surgeon: Dr. Juan Greenwood MD, PhD (PGY-1)
Pre-op Diagnosis: Infrarenal abdominal aortic aneurysm
Post-op Diagnosis: Infrarenal abdominal aortic aneurysm
Procedure Performed: Fenestrated EVAR with bilateral stents into renal arteries
Anesthesia Type: General
Specimen / Cultures: None
Estimated Blood Loss: Minimal
Complications: None
Operative Findings: The patient was brought to the OR and placed in the supine position. Following induction and intubation, the patient was prepped and draped in usual sterile fashion. The c-arm was used to identify the femoral heads and skin
marker was used to lashawn the location of the inferior and superior aspects of the femoral heads. Micropuncture kit was used to access the the common femoral arteries bilaterally. Two preclose devices were placed into the groins bilaterally. The
micropuncture kit was then upsized to a 5-[place] sheath over a X2IMPACTson wire bilaterally. Sheaths were placed on both sides over a Lunderquist wire. The main body of the device was deployed into the infrarenal abdominal aorta. Glidewire and catheter
was used to select the right renal artery and a catheter was placed into this vessel. A glidewire and catheter was then used to select the left renal artery and a catheter was placed into this vessel. Renal stents were placed bilaterally. After this
the distal aspects of the modular stent were deployed into the iliacs bilaterally. The device was balloon dilated to promote sealing. Completion arteriogram showed patent renal stents and a good seal along the stent graft. A possible type II
endoleak was suspected. All of the sheaths and wires were removed. Perclose devices were secured. Groins were hemostatic after pressure was held for 10 minutes post procedure. Skin glue was used to cover the puncture sites bilaterally. At the
conclusion of the case, the patient had dopplerable DP/PT bilaterally. The patient was transferred to the PACU in stable condition.
[2023-12-30] MEDS: NSS 1000 IV ×2 (11:22→20:18)
[2023-12-30 11:24] LABS: Blood Urea Nitrogen 26 mg/dl (9-20); Calcium 7.9 mg/dl (8.4-10.2); Carbon Dioxide 21 mmol/L (22-30); Chloride 111 mmol/L (98-107); Estimated Creatinine Clearance 59 ml/min; Glucose 128 mg/dl (70-99); Potassium 5.1 mmol/L (3.5-5.1); Sodium 137 mmol/L (135-145); eGFR > 60.00
[2023-12-30] MEDS: LOW STRENGTH ASPIRIN 324 MG PO (12:16)
[2023-12-30] MEDS: ROXICODONE 5 MG PO (12:17)
--- NOTE | 2023-12-30 12:22 | PTCARENOTE ---
Received pt from pacu on 2lnc with ivf infusing at 80ml/hr as ordered. Levo had been stopped in pacu. Pt awake and alert, c/o 5/10 chronic back pain. Pt denies nausea, abd pain. Belly soft/nt. Pt denies numbness or tingling. Palpable radial
pulses and doppler lower extremity pulses. b/l lower extremities cool at baseline, good cap refill, normal movement. Pt weaned to room air shortly after arrival. Dougherty in place draining clear yellow urine. Admission completed. and daughter
at bedside and updated to plan of care.
--- NOTE | 2023-12-30 12:40 | CON.INTV ---
Consultation
Consultation Request
Date/Time Consultation Requested: 12/30/23
Date/Time Consultation Performed: 12/30/23
Performing Provider: Luis
Reason for Consultation: ICU
Medical History
-
History of Present Illness:
Patient is a 78-year-old male with previous history of emphysema, hypercholesterolemia via presenting for elective AAA repair.
Underwent aortic stent graft repair 12/30/23 without complication and admitted to ICU postoperatively for observation.
Past Medical History
Past Medical History: Other (see list below)
Social History
Tobacco: Former Smoker
Alcohol: None
Drug: None
Family History
Family History: Reviewed & Not Pertinent
Allergies / Home Medications
Allergies
Allergy/AdvReac Type Severity Reaction Status Date / Time
No Known Allergies Allergy Verified 12/19/23 12:05
Home Medications
�Medication �Instructions �Recorded �Confirmed �Last Taken �Type
atorvastatin 40 mg tablet 40 mg PO DAILY High cholesterol 05/28/22 12/30/23 12/29/23 19:00 History
clopidogrel 75 mg tablet 75 mg PO DAILY Blood clot 05/28/22 12/30/23 12/30/23 04:00 History
prevention/tx
tamsulosin 0.4 mg capsule 0.4 mg PO DAILY #30 caps 07/12/22 12/30/23 12/29/23 19:00 Rx
acetaminophen 325 mg tablet 650 mg PO BIDPRN PRN mild pain 02/21/23 12/19/23 09/05/23 History
(Tylenol)
Review of Systems
-
History Source: Patient
All other systems: Negative unless noted
Vitals / Labs / Diagnostic Testing
Vital Signs
Temp Pulse Resp BP Pulse Ox
96.9 F L 56 18 101/70 97
12/30/23 12:06 12/30/23 11:30 12/30/23 11:30 12/30/23 11:30 12/30/23 11:30
Lab Data
12/30/23 11:00
12/30/23 10:59
Diagnostic Testing:
Physical Exam
-
HEENT: Normocephalic, Anicteric and Moist Mucous Membranes
Cardiovascular: S1/S2 and Regular Rhythm
Respiratory: Clear and Non-Labored Respirations
GI: Soft, Non Distended and Non Tender
Neurology: Awake, Alert, Oriented, AO x 3 and No Motor Deficits
Skin: Warm, Dry and Good Color
General: Pain (back pain) and Other (NAD)
Assessment
-
Patient is a 78-year-old male with previous history of emphysema, hypercholesterolemia via presenting for elective AAA repair.
Underwent aortic stent graft repair 12/30/23 without complication and admitted to ICU postoperatively for observation.
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
Mild anemia
Back pain
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
Bladder�cancer�s/p TURBT complicated by bladder perforation s/p open laparotomy closure and drainage 05/30/22
Status post lower extremity arteriogram with extensive femoral clot, s/p catheter-directed lytic therapy 2016
History of multiple TIAs
Hypercholesterolemia
50+ pack-year history of smoking, ongoing
Formerly, two packs a day for 20 years, now down to one pack a day
History of lumbar surgery, back pain 2010
History of emphysema
Everyday smoker
Everyday drinker with concern for potential ETOH w/d
�
Plan
No current signs of metabolic encephalopathy or MS changes/following commands
Back pain, mild
Pain/sedation: PRN
RASS goals: 0
Hemodynamically stable, not requiring pressors.
Cardiac history reviewed including PAD, HLD
New cardio rachel noted on CXR, ECHO nml
Resume home meds if able
Oxygen needs: n/a, stable on RA
Prior history of lung disease: Emphysema, suspect COPD given smoking history
Recommend outpatient pulm FU, reviewed again with patient
Supplemental O2 as indicated to maintain sats > 89%
CXR/CT reviewed indicating NAD
Diet advanced, tolerating
Aspiration precautions, HOB > 30 degrees
Speech therapy eval can be considered if at elevated risk
GI prophylaxis if indicated
Creat at baseline, no history of renal disease
Void trials
Follow urine output, critical I/Os
Replete electrolytes as needed
Urology following for postop management
No signs/symptoms suspicious for infectious etiology at this time
Observe off antibiotics for now
Can obtain cultures if fever starts
Follow fever trend, WBC count
CBC stable, no signs of bleeding or coagulopathy.
DVT prophylaxis as assessed based on risk, including mechanical SCDs
Can transfuse if indicated for Hb <7, plt < 10
INR WNL
No prior h/o diabetes or thyroid disease
Monitor accuchecks PRN/SS coverage if needed
We will follow
Diagnostic Data
CXR 12/25/23- No acute cardiopulmonary process.
CXR 05/30/22- no acute disease, new mild cardiomegaly
CXR 04/28/19- IMPRESSION: Linear densities within both lung bases, compatible with linear atelectasis and/or scarring. No evidence of consolidation. No evidence of pulmonary edema or significant pleural effusion.
LDCT 06/09/19 - FINDINGS: There is mild biapical scarring, right slightly greater than left. Some minor lingular scarring is also noted. There is some mild dependent bilateral subsegmental atelectasis. 4 mm left lower lobe pulmonary nodule is seen.
The trachea and central airways are patent.
CT AP 09/09/23- 1. Increased size of a small to moderate inguinal hernia containing a loop of small bowel with mild wall edema or adjacent small fluid.
2. Stable abdominal aortic aneurysm measuring 5.2 cm in diameter.
CT AP 04/23/22 - IMPRESSION: 1. 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
2. Abdominal aortic aneurysm, measuring 4.4 cm in greatest orthogonal dimension, compared to 3.8 cm on prior study. The infrarenal neck measures approximately 1.2 cm, and is significantly angulated (angle measured at approximately 80 degrees).
3. 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 Wide patency of the SMA.
4. Cholelithiasis without evidence of acute cholecystitis.
5. Mild prostatic enlargement.
ECHO 12/19/23- Normal left ventricular size, wall thickness and systolic function. No regional wall motion abnormalities are seen. LV ejection fraction is 55-60%. Trace mitral and tricuspid insufficiency. Mild pulmonic regurgitation. Overall there
is no significant change from May 31, 2022
ECHO 05/31/22- CONCLUSIONS- �Normal biventricular size and systolic function without regional wall motion�abnormality.�No significant valvular disease.�No prior study available for comparison.
�
Reports and relevant images were personally reviewed. Available old records are reviewed.
-----
Critical Care time 50 mins -- this includes review of history, physical exam, medications, hemodynamic/ventilator parameters, laboratory data, imaging and discussion with house staff, pharmacy, respiratory therapy, proof sorter, and nursing.
[2023-12-30 12:45] LABS: Magnesium 1.8 mg/dl (1.6-2.3)
[2023-12-30] MEDS: DILAUDID 0.5 MG IV ×3 (14:10→20:17)
--- NOTE | 2023-12-30 15:58 | PTCARENOTE ---
Systems reviewed. No new changes. Pt only complaint is low back pain. Looking forward to getting oob tomorrow.
--- NOTE | 2023-12-30 19:52 | PTCARENOTE ---
rec'd patient. assessment as documented. oriented x3. KLAMATH. SR on monitor. on RA, denies SOB. temp sensing valle in place. b/l groin sites LYNDA with glue, soft with mild bruising. pt denies pain at sites. IVF infusing. call andrew within reach, care
ongoing.
[2023-12-30] MEDS: HEPARIN 5000 UNITS SC (20:16)
[2023-12-30] MEDS: TYLENOL 650 MG PO (20:17)
[2023-12-31] VITALS: BP 117/75
--- NOTE | 2023-12-31 01:05 | PTCARENOTE ---
pt reassessed. neurovascular checks as documented. pt asleep but arousable to voice, repositions self. care ongoing.
[2023-12-31 04:07] LABS: INR 1.16; PT 14.6 Sec (11.4-14.6)
[2023-12-31 04:08] LABS: APTT 31.2 Sec (23.4-35.0); Hematocrit 33.1 % (39.0-52.0); Hemoglobin 11.3 g/dL (13.0-18.0); Mean Corp Hgb Conc. 34.1 g/dL (33.0-37.0); Mean Corpuscular Hgb 32.2 pg (27.0-31.0); Mean Corpuscular Volume 94.3 fL (80.0-94.0); Mean Platelet Volume 10.9 fL (7.4-10.4); Platelet Count 131 10^3/uL (130-400); Red Blood Cell Count 3.51 10^6/uL (4.70-6.10); Red Cell Dist. Width 13.5 % (11.5-14.5); White Blood Cell Count 6.9 10^3/uL (4.8-10.8)
[2023-12-31 04:26] LABS: Blood Urea Nitrogen 23 mg/dl (9-20); Carbon Dioxide 22 mmol/L (22-30); Chloride 111 mmol/L (98-107); Estimated Creatinine Clearance 65 ml/min; Glucose 115 mg/dl (70-99); Potassium 4.2 mmol/L (3.5-5.1); Sodium 137 mmol/L (135-145); eGFR > 60.00
--- NOTE | 2023-12-31 05:00 | PTCARENOTE ---
pt reassessed, AM labs sent. denies need for PRN pain meds at this time. CHG bath completed, valle care done. call andrew within reach. care ongoing.
[2023-12-31 06:00] VITALS: BMI 21.6
--- NOTE | 2023-12-31 07:26 | W.PN.INTV ---
Today's Communication / Plan
Recommendations
Doing well, stable
PT/OT, IS encouraged
Continue further postop management
Discharge planning per team
Assessment
-
Patient is a 78-year-old male with previous history of emphysema, hypercholesterolemia via presenting for elective AAA repair.
Underwent aortic stent graft repair 12/30/23 without complication and admitted to ICU postoperatively for observation.
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
Mild anemia
Back pain
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
Bladder�cancer�s/p TURBT complicated by bladder perforation s/p open laparotomy closure and drainage 05/30/22
Status post lower extremity arteriogram with extensive femoral clot, s/p catheter-directed lytic therapy 2016
History of multiple TIAs
Hypercholesterolemia
50+ pack-year history of smoking, ongoing
Formerly, two packs a day for 20 years, now down to one pack a day
History of lumbar surgery, back pain 2010
History of emphysema
Everyday smoker
Everyday drinker with concern for potential ETOH w/d
�
Plan
No current signs of metabolic encephalopathy or MS changes/following commands
Back pain, mild
Pain/sedation: PRN
RASS goals: 0
Hemodynamically stable, not requiring pressors.
Cardiac history reviewed including PAD, HLD
New cardio rachel noted on CXR, ECHO nml
Resume home meds if able
Oxygen needs: n/a, stable on RA
Prior history of lung disease: Emphysema, suspect COPD given smoking history
Recommend outpatient pulm FU, reviewed again with patient
Supplemental O2 as indicated to maintain sats > 89%
CXR/CT reviewed indicating NAD
Diet advanced, tolerating
Aspiration precautions, HOB > 30 degrees
Speech therapy eval can be considered if at elevated risk
GI prophylaxis if indicated
Creat at baseline, no history of renal disease
Void trials
Follow urine output, critical I/Os
Replete electrolytes as needed
Urology following for postop management
No signs/symptoms suspicious for infectious etiology at this time
Observe off antibiotics for now
Can obtain cultures if fever starts
Follow fever trend, WBC count
CBC stable, no signs of bleeding or coagulopathy.
DVT prophylaxis as assessed based on risk, including mechanical SCDs
Can transfuse if indicated for Hb <7, plt < 10
INR WNL
No prior h/o diabetes or thyroid disease
Monitor accuchecks PRN/SS coverage if needed
Diagnostic Data
CXR 12/25/23- No acute cardiopulmonary process.
CXR 05/30/22- no acute disease, new mild cardiomegaly
CXR 04/28/19- IMPRESSION: Linear densities within both lung bases, compatible with linear atelectasis and/or scarring. No evidence of consolidation. No evidence of pulmonary edema or significant pleural effusion.
LDCT 06/09/19 - FINDINGS: There is mild biapical scarring, right slightly greater than left. Some minor lingular scarring is also noted. There is some mild dependent bilateral subsegmental atelectasis. 4 mm left lower lobe pulmonary nodule is seen.
The trachea and central airways are patent.
CT AP 09/09/23- 1. Increased size of a small to moderate inguinal hernia containing a loop of small bowel with mild wall edema or adjacent small fluid.
2. Stable abdominal aortic aneurysm measuring 5.2 cm in diameter.
CT AP 04/23/22 - IMPRESSION: 1. 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
2. Abdominal aortic aneurysm, measuring 4.4 cm in greatest orthogonal dimension, compared to 3.8 cm on prior study. The infrarenal neck measures approximately 1.2 cm, and is significantly angulated (angle measured at approximately 80 degrees).
3. 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 Wide patency of the SMA.
4. Cholelithiasis without evidence of acute cholecystitis.
5. Mild prostatic enlargement.
ECHO 12/19/23- Normal left ventricular size, wall thickness and systolic function. No regional wall motion abnormalities are seen. LV ejection fraction is 55-60%. Trace mitral and tricuspid insufficiency. Mild pulmonic regurgitation. Overall there
is no significant change from May 31, 2022
ECHO 05/31/22- CONCLUSIONS- �Normal biventricular size and systolic function without regional wall motion�abnormality.�No significant valvular disease.�No prior study available for comparison.
�
Reports and relevant images were personally reviewed. Available old records are reviewed.
-----
Critical Care time 32 mins -- this includes review of history, physical exam, medications, hemodynamic/ventilator parameters, laboratory data, imaging and discussion with house staff, pharmacy, respiratory therapy, apartment leasing specialist, and nursing.
Subjective Dataa
Subjective Data
Date of Service:
Date of Service: December 31, 2023
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
Subjective:
no events ON, no new complaints
stable overnight
Objective Data
Data Reviewed
Vital Signs / I&O / Oxygen:
Vital Signs
Temp Pulse Resp BP Pulse Ox
98.5 F 60 18 117/75 96
12/31/23 04:12 12/31/23 06:00 12/31/23 06:00 12/31/23 00:00 12/31/23 06:00
Intake and Output
12/30/23 12/31/23 01/01/24
06:59 06:59 06:59
Intake Total 4215 / 4215
Output Total 2315 / 2315
Balance 1900 / 1900
SaO2 96
Nasal Cannula flow liters per 2
minute
Physical Exam
General: Comfortable and Other (NAD)
HEENT: Normocephalic, Anicteric and Moist Mucous Membranes
Cardiovascular: S1-S2 and Regular Rhythm
Respiratory: Clear and Non-Labored Respirations
GI: Soft, Non Distended and Non Tender
Neurology: Awake, Alert, Oriented, AO x 3 and No Motor Deficits
Skin: Warm, Dry and Good Color
Labs/Micro/Reports
Lab Data
12/31/23 03:49
12/31/23 03:49
Laboratory Results
12/30/23 12/31/23
12:07 03:49
PT Cancelled 14.6
INR Cancelled 1.16
APTT Cancelled 31.2
--- NOTE | 2023-12-31 07:44 | W.PN.VS ---
Addendum entered and electronically signed by Oleg Mccord MD 12/31/23 08:18:
Seen and examined with DAMION Flores. Agree with findings as noted below. Patient without significant complaints. No abdominal pain. Abdomen is soft, nondistended, nontender. Groins are flat bilaterally. Small incisions clean dry and intact
bilaterally. Feet are warm and well-perfused. Dopplerable signals. Plan/as discussed and noted below.
Original Note:
Today's Communication / Plan
-
Seen and assessed with Dr Mccord
Assessment/Plan
-
POD 1 Fenestrated EVAR with bilateral stents into renal arteries
Plan:
-DC yu
-DC valle
-OOB/ambluate
-reg diet
-Possible DC later today
Subjective Data
-
Date of Service: December 31, 2023
Pt seen at bedside this am with Dr Mccord. Pt offers no complaints at this time. No events overnight.
Objective Data
-
Vital Signs
Temp Pulse Resp BP Pulse Ox
98.5 F 60 18 117/75 96
12/31/23 04:12 12/31/23 06:00 12/31/23 06:00 12/31/23 00:00 12/31/23 06:00
Intake and Output
12/30/23 12/31/23 01/01/24
06:59 06:59 06:59
Intake Total 4215 / 4215
Output Total 2315 / 2315
Balance 1900 / 1900
Intake:
Oral fluids 2620 / 2620
IV fluids (Total) 1595 / 1595
Nss 1,000 ml @ 80 mls/hr IV . 1520 / 1520
[id number] ARTHUR Rx#:[id number]
nss 75 / 75
Output:
Urine, Valle 2315 / 2315
Lab Results
12/31/23 03:49
12/31/23 03:49
Calcium 8.0 mg/dl (8.4-10.2) L 12/31/23 03:49
Magnesium 1.8 mg/dl (1.6-2.3) 12/30/23 10:59
Physical Exam
-
AAOx3
No tachypnea
No tachycardia
Abd soft, NT, ND
groin sites c/d/i, soft, no hematoma or drainage
BL feet warm/pink
[2023-12-31] MEDS: LIPITOR 40 MG PO (07:57)
[2023-12-31] MEDS: FLOMAX 0.400000000000000022 MG PO (07:57)
[2023-12-31] MEDS: PLAVIX 75 MG PO (07:57)
[2023-12-31] MEDS: HEPARIN 5000 UNITS SC (07:58)
[2023-12-31 08:00] VITALS: BP 115/78
[2023-12-31] MEDS: LOW STRENGTH ASPIRIN 81 MG PO (09:25)
--- NOTE | 2023-12-31 09:48 | PTCARENOTE ---
Received pt this am without complaint. Vitals stable. Reviewed with vascular team. r radial yu and valle removed without difficulty. Pt placed on tele pack and sat in chair for breakfast, went to bathroom and had bowel movement. No
complaints. Pt due to void. Otherwise please see assessment.
[2023-12-31 10:22] VITALS: BP 128/67
[2023-12-31] MEDS: TYLENOL 650 MG PO (10:52)
--- NOTE | 2023-12-31 11:19 | PTCARENOTE ---
Pt ambulated around unit without difficulty. Voided small amount with very minimal retained in bladder as charted since valle removed.
--- NOTE | 2023-12-31 12:16 | CM ---
CM following re: discharge planning.
Discussed in rounds, reviewed pt's chart, met with pt.
Pt is a 78 year old male, admitted with primary dx of POD 1 Fenestrated EVAR with bilateral stents into renal arteries. Per Vascular surgery, pt is doing well and probably will be discharged this afternoon. Pt is aware, expressed his agreement. IMM
reviewed, placed on chart, pt has a copy.
Pt reports he lives with spouse in a rancher style house, has 3 supportive children. 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 No DME, VN or SNF history.
PCP; Catracho Rausch
Pharmacy: [facility]
D/c plan: home with no needs. Spouse to transport.
[2023-12-31 12:25] VITALS: BP 115/66
--- NOTE | 2023-12-31 13:18 | W.DS.TRANS ---
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
-
Discharge Instructions:
Discharge Diagnosis/Procedures FEVAR
Diet As tolerated
Activity No strenuous activity
Driving Restrictions No driving for 1 week
Bathing Restrictions OK to Shower
Instructions:
Stand-Alone Forms: DC Instr - Vascular OR
Changes to Home Medications: Yes
Discharge Medications:
DC Medications w/original date entered in [employer]
atorvastatin 40 mg tablet 40 mg PO DAILY High cholesterol 05/28/22
clopidogrel 75 mg tablet 75 mg PO DAILY Blood clot prevention/tx 05/28/22
tamsulosin 0.4 mg capsule 0.4 mg PO DAILY #30 caps 07/12/22
acetaminophen 325 mg tablet (Tylenol) 650 mg PO BIDPRN PRN mild pain 02/21/23
magnesium salicylate 580 mg PO Q6H PRN back pain 12/30/23
aspirin 81 mg chewable tablet (Children's Aspirin) 81 mg PO DAILY #90 tabs 12/31/23
Home Medication Changes
Added:
aspirin 81 mg chewable tablet (Children's Aspirin) 81 mg PO DAILY #90 tabs 12/31/23
Pending Results: No
--- NOTE | 2023-12-31 14:22 | PTCARENOTE ---
Pt and given and reviewed discharge instructions. No questions prior to discharge. IV sites removed. Pt without complaint. Ambulated out of hospital with .
[2024-01-01 19:32] LABS: Hepatitis C Antibody Negative (Negative)
== END 2023-12-31 14:15 | disposition home or self-care (01) | DRG 269 ==
LOC: ICU 06:19
PROVIDERS: Nurse Practitioner; ADMITTING PHYSICIAN Surgery Vascular Surgery; CONSULT PHYSICIAN Internal Medicine; FAMILY PHYSICIAN Family Medicine
PROC: 04V03EZ Restriction of Abdominal Aorta with Branched or Fenestrated Intraluminal Device, One or Two Arteries, Percutaneous Approach (ICD-10-PCS; 2023-12-30)
DX: I71.42 Juxtarenal abdominal aortic aneurysm, without rupture (principal); E78.00 Pure hypercholesterolemia, unspecified; J43.9 Emphysema, unspecified; D64.9 Anemia, unspecified; F17.210 Nicotine dependence, cigarettes, uncomplicated; Z79.02 Long term (current) use of antithrombotics/antiplatelets; Z79.899 Other long term (current) drug therapy; Z85.51 Personal history of malignant neoplasm of bladder; Z86.73 Personal history of transient ischemic attack (TIA), and cerebral infarction without residual deficits
CPT/HCPCS: 36415; 71045; 71046; 80048; 83735; 85025; 85027; 85610; 85730; 86803; 86850; 86900; 86901; 87070

== ENCOUNTER → 2024-01-13 14:35 | Outpatient (REF) | payer MEDICARE, OTHER, SELFPAY | LOC: RAD 14:35 | PROVIDERS: ATTENDING PHYSICIAN Registered Nurse; FAMILY PHYSICIAN Family Medicine | DX: I71.40 Abdominal aortic aneurysm, without rupture, unspecified (principal) | CPT/HCPCS: 74174; Q9967 ==

== ENCOUNTER 2024-06-15 06:21 | Day surgery (SDC) | payer MEDICARE, OTHER, SELFPAY ==
--- NOTE | 2024-06-08 10:58 | PTCARENOTE ---
Use EKG from 12/30/23 surgery per office. This EKG was from 12/18/23 cardiac clearance and used for 12/30/23 vascular surgery.
[2024-06-15] VITALS (15 sets, daily range): BP systolic 129–157; BP diastolic 72–91; BMI 21.4
[2024-06-15] MEDS: CYSVIEW KIT 100 MG INTRAVES (09:33)
--- NOTE | 2024-06-15 10:22 | PTCARENOTE ---
Blue light cystview instilled today without complications. Patient tolerated procedure well. Will monitor patient.
[2024-06-15] MEDS: Pyridium 200 MG PO (11:54)
[2024-06-15] MEDS: SUBLIMAZE 50 MCG IV (12:04)
== END 2024-06-15 14:00 | disposition short-term general hospital (02) ==
LOC: SDS 06:21
PROVIDERS: ATTENDING PHYSICIAN Specialist
DX: C67.9 Malignant neoplasm of bladder, unspecified (principal); N32.89 Other specified disorders of bladder; Z85.51 Personal history of malignant neoplasm of bladder
CPT/HCPCS: 52235; 88307; 88341; 88342; A9589

== ENCOUNTER → 2024-07-14 13:00 | Outpatient (REF) | payer MEDICARE, OTHER, SELFPAY | LOC: RAD 13:00 | PROVIDERS: ATTENDING PHYSICIAN Surgery Vascular Surgery; FAMILY PHYSICIAN Family Medicine | DX: I71.43 Infrarenal abdominal aortic aneurysm, without rupture (principal) | CPT/HCPCS: 76770 ==

== ENCOUNTER → 2024-12-29 07:58 | Outpatient (REF) | payer MEDICARE, OTHER, SELFPAY | LOC: RAD 07:58 | PROVIDERS: ATTENDING PHYSICIAN Surgery Vascular Surgery; FAMILY PHYSICIAN Family Medicine | DX: I71.40 Abdominal aortic aneurysm, without rupture, unspecified (principal) | CPT/HCPCS: 74174; Q9967 ==

== ENCOUNTER → 2025-01-10 09:29 | Outpatient (REF) | payer MEDICARE, OTHER, SELFPAY ==
[2025-01-10 11:11] LABS: Hematocrit 41.1 % (39.0-52.0); Hemoglobin 13.4 g/dL (13.0-18.0); Mean Corp Hgb Conc. 32.6 g/dL (33.0-37.0); Mean Corpuscular Hgb 31.3 pg (27.0-31.0); Mean Platelet Volume 10.5 fL (7.4-10.4); Platelet Count 181 10^3/uL (130-400); Red Blood Cell Count 4.28 10^6/uL (4.70-6.10); White Blood Cell Count 4.8 10^3/uL (4.8-10.8)
== END ==
LOC: SDSPAT 09:29
PROVIDERS: ATTENDING PHYSICIAN Specialist; FAMILY PHYSICIAN Family Medicine
DX: Z01.818 Encounter for other preprocedural examination (principal)
CPT/HCPCS: 36415; 85027; 93005

== ENCOUNTER 2025-01-25 06:24 | Day surgery (SDC) | payer MEDICARE, OTHER, SELFPAY ==
[2025-01-10 13:24] VITALS: BMI 22.8
[2025-01-25] VITALS (11 sets, daily range): BP systolic 87–137; BP diastolic 65–84; BMI 22.8
[2025-01-25] MEDS: CYSVIEW KIT 100 MG INTRAVES (07:33)
[2025-01-25] MEDS: NORMOSOL-R/PLASMALYTE-A 1000 IV (07:45)
[2025-01-25] MEDS: Pyridium 200 MG PO (09:59)
== END 2025-01-25 10:55 | disposition home or self-care (01) ==
LOC: SDS 06:24
PROVIDERS: ATTENDING PHYSICIAN Specialist
DX: D49.4 Neoplasm of unspecified behavior of bladder (principal); Z85.51 Personal history of malignant neoplasm of bladder
CPT/HCPCS: 52000; C9738; A9589